=== PATIENT | female | born 1985 | race Hispanic/Latino ===

== ENCOUNTER 2016-05-01 20:04 | Emergency (ER) | payer OTHER ==
[~2016-05-01] VITALS: Ht 162.6 cm; Wt 71.8 kg
[~2016-05-01 20:04] MED LIST: FES300 PO; PREN1TAB69 PO
[2016-05-01 20:08] VITALS: BP 121/77; PULSE 64; RESP 16; O2SAT 100
--- NOTE | 2016-05-01 20:34 | ED.REPORT ---
HPI-Chest Pain Under 40 Date of Service May 01, 2016 ED Provider: Vitaliy Perez DO Ms. Kulkarni is a 31 y/o woman who presents today retrosternal chest pressure and heaviness and tightness started 3 days ago. It radiates across the top of her chest like a band. When it gets worse it goes up towards her neck and towards back. Today, it is constant. She had the flu last week, but she did not see the doctor and was not officially diagnosed with influenza. Her symptoms resolved except for fatigue. Her pain has been getting worse since it started. It is worse with cold air. She has chills at night. She is fine at work sitting but when she tries walking increases pressure in her chest and trouble breathing. Never felt like this before. No asthma. No cough, wheezing, palpitations, or leg edema. No weakness. Her left leg started on Friday aching a lot too -"horrible ache that doesn't let me sleep." It is her whole leg and is nothing compared to soreness after working out. 5 weeks ago both legs tingling which improved from walking around. She started a new walking exercise video at home on Friday. Traveled to [facility], [place] for New Years and returned on 04/23/2016. She drove with her family. The trip takes 24 hours in a car. She does not take control pills. She had a tubal ligation. No family history of CAD or blood clots or coagulation disorders. She went to Urgent Care prior to coming to the ED and care transferred secondary to the Urgent Care closing. Nursing Notes Stated Complaint: CHEST PAIN/SENT FROM Chief Complaint: Chest Pain-Non Cardiac Nature Nursing Notes Reviewed: Yes Allergies: Coded Allergies: No Known Allergies (Verified Allergy, Unknown, 02/26/08) Uncoded Allergies: NKDA (Allergy, Unknown, 10/13/04) NKFA (Allergy, Unknown, 10/13/04) No Known Allergies (Allergy, Unknown, 10/13/04) Scheduled Ferrous Sulfate-Expunged Drug, Do Not Renew! (Feosol-Expunged Drug, Do Not Renew !) 325 Mg Tablet 325 ( PO BID Vit/Fe Fumarate/Fa-Expunged Drug, Do (-Expunged Drug, Do Not Renew!) 1 Each Tablet 1 EACH PO DAILY General Time Seen by MD: 20:27 Chief Complaint Chest pressure Hx Obtained From: Patient Onset Occurred: 3 days ago Symptom Duration: Intermittent Associated with: Reports: Fatigue, Numbness/tingling, Recent viral symptoms ( New Years Day to Apr 24. ), Shortness of breath, Denies: Cough, non-productive, Cough, productive, Diaphoresis, Dizziness, Fever, Lightheaded, Nausea, Near-syncope, Palpitations, Syncope, Vomiting, Weakness, Wheezing Recent Healthcare: Recent doctor visit ([facility]) Risk Factors )( CAD Risk Stratification No Amphetamine, No Cocaine, No Diabetes mellitus, No Family history, No Hyperlipidemia, No Hypertension, No Known CAD, No Smoking )( PE Risk Stratification No Coagulation Disorder, No Estrogen Medicine / BCP's, No Immobilization, No Malignancy, No , No , No Previous DVT, No Previous PE, No Surgery Last 60 Days, No Trauma PERC Rule PERC Result: All PERC criteria "No" Well's Criteria for PE Well's PE Score: 0-2 pts (low risk 3.6%) Well's Criteria for DVT Local tend d-vein sys (1) Well's DVT Score: 1-2 pts (mod risk 33%) Past Medical History Past Medical History Notes: no known Past Surgical History Reports: Appendectomy, (x3) Smoking History Never Smoker Social History Alcohol Use: Denies alcohol use Drug Use: Denies drug use Ambulatory Status Independent Review of Systems Basic Review of Systems : No dysuria Hematologic: No bleeding Constitutional: Reports: Chills, Fatigue, Denies: Fever, Weakness - generalized Cardiovascular: Reports: Chest pain, Dyspnea on exertion, Denies: Edema, Palpitations GI: Denies: Abdominal pain, Constipation, Diarrhea, Nausea, Vomiting Musculoskeletal: Reports: Back pain (when chest pain hurts really bad) Skin: Denies Bruising, Denies Diaphoresis, Denies Rash Neurologic: Denies: Bladder dysfunction, Bowel dysfunction, Dizziness Psychiatric: Denies: Anxiety Physical Exam Initial Vital Signs Vital Signs (First) Date Time Temp Pulse Resp B/P Pulse Ox O2 Delivery O2 Flow Rate FiO2 05/01/16 20:08 36.8 64 16 121/77 100 Room Air Initial VS: Reviewed, Vital signs normal Head / Eyes: Atraumatic, Normocephalic, PERRL ENT: Mucous membranes moist, Conjunctiva normal, No scleral icterus Neck: Non-tender, Full range of motion Abdomen / GI: Soft, Non-tender, No guarding, No rebound, No distention Lymphatic: No lymphadenopathy Extremities: Vascular intact, Neuro intact, No swelling Skin: Warm, Dry Neurologic: Alert, Oriented, Nonfocal Psychiatric: Mood/affect normal, Behavior normal, Normal thought content Respiratory / Chest: Breath sounds NL, Breath sounds = bilat, No respiratory distress, No rales, No rhonchi Wheezing / Retractions: Positive: Wheezing mild (on left) Cardiovascular: Heart rate NL, Regular rhythm, Heart sounds NL, No gallop, No murmurs, No rubs Lower Extremity / Pelvis / MS: Inspection NL, Full range of motion, No swelling , Neurologic intact, Vascular intact Left Leg / Calf: Positive: Leyla's sign positive (on left), Tenderness present... (Mild) Interpretation & Diagnostics Interpretation & Diagnostics: CXR shows no acute cardiopulmonary changes EKG shows normal sinus rhythm Lab Results Interpretation Result Diagram: 05/01/16 2100 05/01/16 2100 Test 05/01/16 21:00 05/01/16 21:01 05/01/16 22:58 White Blood Count 6.6th/mm3 (3.8-10.1) Red Blood Count 4.37mil/mm3 (3.90-5.20) Hemoglobin 12.7g/dL (12.0-15.6) Hematocrit 38.9% (35.0-46.0) Mean Corpuscular Volume 89.0fL (81-100) Mean Corpuscular Hemoglobin 29.1pg (27.0-35.0) Mean Corpuscular Hemoglobin Concent 32.6% (32.0-37.0) Red Cell Distribution Width 13.4% (12.3-15.4) Platelet Count 244bil/L (150-400) Neutrophils (%) (Auto) 41.0% (40-74) Lymphocytes (%) (Auto) 42.6% (14-46) Monocytes (%) (Auto) 7.1% (4-12) Eosinophils (%) (Auto) 8.1% (0-5) Basophils (%) (Auto) 1.2% (0-3) Hematology Comments Wbc D-Dimer < 0.5mg/L (<0.50) Sodium Level 140mEq/L (134-144) Potassium Level 3.4mEq/L (3.5-5.2) Chloride Level 104mEq/L (97-108) Carbon Dioxide Level 25mmol/L (18-29) Blood Urea Nitrogen 11mg/dL (6-20) Creatinine 0.55mg/dL (0.57-1.00) Estimat Glomerular Filtration Rate 182mL/min (>59) Glucose Level 111mg/dL (60-99) Calcium Level 8.7mg/dL (8.5-10.1) Total Bilirubin 0.2mg/dL (0.0-1.2) Aspartate Amino Transf (AST/SGOT) 20U/L (0-50) Alanine Aminotransferase (ALT/SGPT) 23U/L (0-32) Alkaline Phosphatase 88U/L (25-150) Total Protein 8.1g/dL (6.4-8.4) Albumin 4.1g/dL (3.4-5.0) Hold Urine Received (Received) Troponin T 0.010ug/L (0.0-0.011) Re-Eval/Medical Decision Med Decision/Clinical Course 1. Chest pressure -CXR does not show any acute changes -EKG shows normal sinus rhythm -First and second troponin negative -D-dimer negative -Rapid influenza A and B negative -Pt has left sided wheezing on physical exam and reports worsening symptoms in cold air. Possible reactive airway disease. Pt did not have improvement of symptoms after DuoNeb treatment. -Pt also given prednisone 60 mg once in the ED 2. Left leg pain -Left calf tenderness on exam -D-dimer negative -Pt has increased her physical activity with at home video workouts Re-Evaluation/Progress : Patient Status: No relief Re-Evaluation/Progress Note: Wheezing improved on exam after DuoNeb treatment Differential Diagnosis: Positive: Acute coronary syndrome, Anxiety disorder, Asthma exacerbation, Bronchitis, Cholecystitis, Costochondritis, GERD, Mitral valve prolapse, Musculoskeletal pain, Myocarditis, Pericarditis, Pneumomediastinum, Pneumonia, Pneumothorax, Pulmonary embolism Discharge & Departure Shift Change Sign-Out Response to Therapy: Unchanged (symptoms unchaged after DuoNeb, but wheezing improved) Primary Impression: Chest wall pain Ruled Out: Pulmonary embolism Disposition: Home Discharge Condition All VS Reviewed: Yes Condition: Stable Patient Instructions: Acute Bronchitis (ED), Reactive Airways Disease (ED) Additional Instructions: Based on the chest x-ray that you had today, you do not have pneumonia, and based on your blood work your chest pain is not coming from your heart or a blood clot in your lungs. You received a nebulizer treatment today in the ER and a dose of prednisone, which can help with inflammation. You can take hydrocodone-acetaminophen 5mg-325 mg 1-2 tablets by mouth every 6 hours as needed for pain. Do not take with Tylenol, alcohol, other drugs, or while driving. If you take the pain medication and your pain continues, follow up with your primary care provider sooner. Follow up with your primary care provider in 1 week. It was found that you had a moderate amount of atypical lymphocytes. Your primary care provider may possibly discuss investigating this further. Referrals: Baljinder Paz MD (PCP) [facility] 1 Week Attending Statement I took a history performed and physical. I concur with the resident's note above. Hard to say why she has these symptoms when she takes a deep breath. Perhaps she has a typical bronchospasm. Pulmonary emboli was ruled out. Myocardial infarction ruled out. Pneumothorax ruled out. Pneumonia highly unlikely. She did not have any significant relief with the DuoNeb. Recommend anti-inflammatories and close outpatient follow-up. She may need pulmonary function tests. She has a primary care that she can set up a follow-up with. copies to: Elsie Padilla MD, Marissa L DO May 01, 2016 20:34 Vitaliy Perez DO May 02, 2016 17:56
[2016-05-01 21:10] LABS: BASOPHILS % (AUTO) 1.2 % (0-3); EOSINOPHILS % (AUTO) 8.1 % (0-5); MONOCYTES % (AUTO) 7.1 % (4-12); Mean Corpuscular Hemoglobin 29.1 pg (27.0-35.0); Platelet Count 244 bil/L (150-400)
[2016-05-01 21:29] LABS: TROPONIN T 0.01 ug/L (0.0-0.011)
--- NOTE | 2016-05-01 21:59 | DRSVH ---
PROCEDURE: X-RAY CHEST, TWO VIEWS ([id number]) INDICATIONS: chest pressure and pleuritic chest pain, s/p URI TECHNIQUE: 2 views of the chest were acquired. COMPARISON: None. FINDINGS: Surgical changes and devices: None. Lungs and pleura: No pleural effusions or pneumothorax. Lungs are clear. Mediastinum: Mediastinal contours are normal. Heart size is normal. Bones and chest wall: No suspicious bony abnormalities. Soft tissues appear unremarkable. IMPRESSION: 1. No acute cardiopulmonary disease. Dictated by: Zoran Hendrix M.D. on 05/01/2016 at 21:58 Approved by: Zoran Hendrix M.D. on 05/01/2016 at 21:58
[2016-05-01] MEDS ORDERED: predniSONE 20 mg Tablet PO ONE (22:30)
[2016-05-01] MEDS ORDERED: Albuterol-Ipratropium 3 mL Inhalation Solution NEB ONE (22:30)
[2016-05-01 22:44] VITALS: PULSE 49; RESP 16; O2SAT 99
[2016-05-01] MEDS ORDERED: _HYDROcodone/APAP 5-325 mg Tablet PO PRN (23:45)
[2016-05-02 00:03] VITALS: BP 101/63; PULSE 65; RESP 20; O2SAT 98
[2016-05-02 00:19] VITALS: BP 101/63; PULSE 65; RESP 20; O2SAT 98
== END 2016-05-02 00:20 | disposition home or self-care (01) ==
LOC: SED 20:04
DX: R07.89 Other chest pain (principal); Z90.49 Acquired absence of other specified parts of digestive tract
CPT/HCPCS: 36415; 71020; 80053; 81025; 84484; 85025; 85379; 87804; 93005; 94664; 99285; J7620